=== PATIENT | female | born 1975 | race Caucasian/White ===

== ENCOUNTER 2025-03-20 00:25 | Emergency (ER) | payer OTHER, SELFPAY ==
[2025-03-20 00:34] VITALS: BP 180/120
--- NOTE | 2025-03-20 04:32 | ED.GENMED ---
History of Present Illness
General
Chief Complaint: Foreign Body Ingestion
Source: patient and family
Exam Limitations: none
Time Seen by Provider: 03/20/25 02:48
Nursing documentation reviewed up to this point in time: agreed with
History of Present Illness
History of Present Illness:
49-year-old female presenting to the emergency department after swallowing her earring prior to arrival. [place] some irritation to the back of her throat and thought it could have been stuck there. Denies any chest pain abdominal pain or additional
concerns.
Review of Systems
Review of Systems
Allergies reviewed?: Yes
All Other Systems: ROS reviewed and negative except as documented in HPI and ROS
Phy Exam
Physical Exam
Physical Exam:
GENERAL: Alert , in no apparent distress
EYE: pupils equal and reactive
NECK: Supple, no significant adenopathy.
ENT: o/p clr, mmm.
CARDIAC: Regular rate and rhythm .
LUNGS: Clear breath sounds bilaterally, no acute respiratory distress, no wheezes/rales/rhonchi
ABDOMEN: Soft, without focal tenderness, no r/g, no cvat
NEUROLOGICAL: Alert and oriented, no focal neuro deficits
SKIN: Warm and dry, skin intact.
MUSCULOSKELETAL: No edema, well perfused.
PSYCH: Normal and appropriate interaction.
Course
Orders/Labs/Results
Orders:
Orders
03/20/25 00:37
Neck Soft Tissue [CR Soft Tissue Neck ] Urgent
Comment:
Reason For Exam: SWALLOWED AN EARRING
03/20/25 03:13
CR Abdomen - 1 View Urgent
Reason For Exam: FB eval earring
Chest [CR Chest - 2 Views ] Urgent
Comment:
Reason For Exam: FB eval
Vital Signs
Initial and Last Documented VS:
Initial Vital Signs
Temp Pulse Resp BP Pulse Ox
98 F 86 18 180/120 98
03/20/25 00:34 03/20/25 00:34 03/20/25 00:34 03/20/25 00:34 03/20/25 00:34
Last Documented Vital Signs
Temp Pulse Resp BP Pulse Ox
98 F 86 18 180/120 98
03/20/25 00:34 03/20/25 00:34 03/20/25 00:34 03/20/25 00:34 03/20/25 00:34
MDM/Problems Addressed
MDM/Problems Addressed:
49-year-old female presenting to the emergency department today with concerns of a swallowed earring. Has some mild irritation to the posterior pharynx otherwise fluids. Soft abdomen clear lungs. X-ray confirming the earring likely in the
stomach. Effective management at this point and close outpatient follow-up was recommended.
*Pulse Oximetry
SaO2: 98
Oxygen Mode of Delivery: Room air
Patient hypoxic: no (98)
*Critical Care Note
Total Time (30-74mins, 75-104mins- exclusive of procedures): Not Applicable
ED Attending Note
-
Portions of this chart may have been created with voice recognition software.� Occasional wrong word or��sound alike� substitutions may have occurred due to the inherent limitations of voice recognition software.
Discharge Plan
Departure
Patient Disposition: Home (Routine Discharge)
Date of Disposition: 03/20/25
Time of Disposition: 04:33
Patient with high blood pressure during this ER visit?: No
Condition: Good
Covid-19: Not Applicable
Discharge Problem:
Foreign body, swallowed
Instructions: Swallowed Objects, Adult (DC)
Referrals:
Simona Giles DO [Family Provider, Family Practice]
Activity Restrictions/Additional Instructions:
You came to the emergency department today after swallowing an earring. This should pass on its own. If you have significant symptoms please return to the ER otherwise follow-up closely with the primary care doctor.
Interventions
Interventions:
*Risk Screen - Suicide Last Done: 03/20/25 00:34
*Neglect/Abuse Screening Last Done: 03/20/25 00:34
JR-Dmkfkj-Zrmsbodjrs Assessment Last Done: 03/20/25 01:16
ED- Pulmonary Assessment Last Done: 03/20/25 01:16
ED-EENT Assessment Last Done: 03/20/25 01:16
Discharge Date and Time
Print Language: POLISH
== END 2025-03-20 04:45 | disposition home or self-care (01) ==
LOC: EMR 00:25
PROVIDERS: EMERGENCY PHYSICIAN Emergency Medicine; FAMILY PHYSICIAN Family Medicine
DX: T18.8XXA Foreign body in other parts of alimentary tract, initial encounter (principal); W44.8XXA Other foreign body entering into or through a natural orifice, initial encounter
CPT/HCPCS: 99284; 70360; 71046; 74018